=== PATIENT | male | born 1975 | race Two or more races ===

== ENCOUNTER 2021-06-07 14:08 | Emergency (ER) | payer OTHER ==
[2021-06-07 14:18] VITALS: BP 145/97
--- NOTE | 2021-06-07 15:52 | ED Physician Documentation ---
History of Present Illness - Stated complaint Stated Complaint: LT BACK/SHOULDER PX - Chief complaint Chief Complaint: General - Additonal information Additional information: 45-year-old male presents emergency department for evaluation of 4 days upper arm back low back neck pain as well as headache. 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 He reports he had been unemployed for about 1 month before starting work again. He reports feeling feverish but has had no nausea or vomiting no loss of taste or smell. He had the [employer] Covid vaccine in January of this year. Review of Systems Constitutional: reports: Myalgias. denies: Fever, Chills Eyes: reports: Reviewed and negative Ears: reports: Reviewed and negative Nose: reports: Reviewed and negative Throat: reports: Reviewed and negative Cardiac: reports: Reviewed and negative Respiratory: reports: Reviewed and negative GI: reports: Reviewed and negative PD PAST MEDICAL HISTORY - Present Medications Home Medications: Ambulatory Orders Medication Instructions Recorded Confirmed No Known Home Medications 06/07/21 06/07/21 - Allergies Allergies/Adverse Reactions: Allergies Allergy/AdvReac Type Severity Reaction Status Date / Time No Known Drug Allergies Allergy Verified 06/07/21 14:19 PD ED PE NORMAL - General General: Alert and oriented X 3, No acute distress - HEENT HEENT: PERRL - Neck Neck: Supple, no meningeal sign - Cardiac Cardiac: RRR, No murmur - Respiratory Respiratory: Clear bilaterally - Abdomen Abdomen: Normal bowel sounds, Soft, Non tender, Non distended - Back Back: No CVA TTP Results - Vitals Vitals: Vital Signs - 24 hr 06/07/21 14:12 Temperature 36 C L Heart Rate 89 Respiratory 16 Rate Blood Pressure 145/97 H O2 Saturation 97 Oxygen O2 Source Room air PD MEDICAL DECISION MAKING - ED course Complexity details: d/w patient, d/w family ED course: 45-year-old male presents emergency department for evaluation of 4 days generalized myalgias headache back pain. No cough fever congestion. No abdominal pain nausea or vomiting. 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 This may simply be musculoskeletal strain but given the pandemic a COVID-19 screen is completed. Patient advised to remain in quarantine until the results are known. Departure - Departure Disposition: 01 Home, Self Care Clinical Impression: Generalized body aches Comments: Lj we are obtaining a COVID-19 screen on you. It is possible that a mild virus is causing the body aches but it could also be due to the heavy hardwood work that you did on Saturday. I recommend that you stay very well-hydrated drinking lots of fluids. You can take Tylenol or Aleve for discomfort. If your symptoms are not getting better, you develop fevers, have difficulty breathing or have swelling in your arms or legs and please return immediately to the ER. You have a Covid test pending. You need to self quarantine until the result is done and negative. Do not leave your house. Do not get near anybody. The results should be done in 48 to 72 hours. We will call with a positive result, the fastest way to get a negative result for confirmation though is to go to the hospital website at [email or web address], click on the my [email or web address] tab and sign up for the patient portal. If any friends or family get sick and would like to have a Covid test done, but do not have signs or symptoms that would necessitate being hospitalized, we encourage testing through our coronavirus swabbing station, call [phone] to schedule an appointment.
== END 2021-06-07 16:25 | disposition home or self-care (01) ==
LOC: ED 14:08
DX: M79.10 Myalgia, unspecified site (principal); R51.9 Headache, unspecified; M54.5 Low back pain; M54.2 Cervicalgia; Z20.822 Contact with and (suspected) exposure to COVID-19
CPT/HCPCS: 99284

== ENCOUNTER 2022-01-13 18:45 | Emergency (ER) | payer OTHER ==
[2022-01-13 19:05] LABS: BILIRUBIN,URINE NEGATIVE (NEGATIVE); GLUCOSE, URINE (UA) NEGATIVE (NEGATIVE); KETONES,URINE (UA) NEGATIVE (NEGATIVE); LEUKOCYTE ESTERASE, URINE NEGATIVE (NEGATIVE); NITRITE,URINE NEGATIVE (NEGATIVE); OCCULT BLOOD,URINE TRACE-INTA (NEGATIVE); PH,URINE 5.5 PH (5.0-7.5); PROTEIN,URINE NEGATIVE (NEGATIVE); UROBILINOGEN,URINE 0.2 (NORMAL) E.U./dL (NORMAL)
[2022-01-13 19:06] LABS: CLARITY,URINE CLEAR (CLEAR)
--- NOTE | 2022-01-13 19:06 | ED Physician Documentation ---
PD HPI ABD PAIN - Stated complaint Stated Complaint: fever,abd & back px - Chief complaint Chief Complaint: Abd Pain - History obtained from History obtained from: Patient - History of Present Illness Timing - onset: Last night Timing - duration: Days (1) Timing - details: Gradual onset, Still present, Waxing and waning Quality: Cramping, Aching, Pain Location: Periumbilical, Other (right side abd upper to mid.) Radiation: Upper back. No: Chest Improved by: No: Vomiting Worsened by: Eating Associated symptoms: Fever (feeling of chills, did not take temp.), Nausea, Vomiting. No: Diarrhea, Constipation, Dysuria, Chest pain Similar symptoms before: Diagnosis (similar to gallbladder) Recently seen: Not recently seen Review of Systems Constitutional: reports: Fever, Chills Nose: denies: Rhinorrhea / runny nose, Congestion Throat: denies: Sore throat Cardiac: denies: Chest pain / pressure Respiratory: denies: Cough GI: reports: Abdominal Pain, Nausea, Vomiting. denies: Constipation, Diarrhea : denies: Dysuria, Frequency Skin: denies: Rash, Lesions Neurologic: reports: Generalized weakness. denies: Altered mental status, Headache PD PAST MEDICAL HISTORY - Past Medical History Cardiovascular: None Respiratory: None - Past Surgical History Past Surgical History: Yes General: Cholecystectomy, Appendectomy - Present Medications Home Medications: Ambulatory Orders Medication Instructions Recorded Confirmed Losartan Potassium [Cozaar] 100 mg PO DAILY 01/13/22 01/14/22 Ondansetron Odt [Zofran] 4 mg TL Q6H PRN #10 tablet 01/13/22 01/14/22 clonazePAM [Clonazepam] 1 mg PO DAILY PRN 01/13/22 01/14/22 metFORMIN [Glucophage] 1,000 mg PO DAILY 01/13/22 01/14/22 oxyCODONE [Roxicodone] 5 mg PO Q6H PRN #15 tablet 01/13/22 01/14/22 Molnupiravir [Molnupiravir (Eua)] 800 mg PO BID #40 cap 01/14/22 - Allergies Allergies/Adverse Reactions: Allergies Allergy/AdvReac Type Severity Reaction Status Date / Time No Known Drug Allergies Allergy Verified 01/14/22 10:06 - Social History Does the pt smoke?: No Smoking Status: Never smoker Does the pt drink ETOH?: Yes Does the pt have substance abuse?: No - Immunizations Immunizations are current?: No - POLST Patient has POLST: No PD ED PE NORMAL - Vitals Vital signs reviewed: Yes - General General: Alert and oriented X 3, Well developed/nourished, Other (appears in pain and also complains of nausea. ) - HEENT HEENT: Pharynx benign - Neck Neck: Supple, no meningeal sign, No adenopathy - Cardiac Cardiac: RRR, No murmur - Respiratory Respiratory: Clear bilaterally - Abdomen Abdomen: Soft, Non distended, Other (tender mid to upper right abd with some guarding but no rebound nor percussion tender. ). No: Normal bowel sounds (decreased) Results - Vitals Vitals: Vital Signs - 24 hr 01/13/22 01/13/22 01/13/22 18:49 20:04 21:09 Temperature 38.4 C H Heart Rate 99 88 78 Respiratory 16 24 16 Rate Blood Pressure 141/96 H 155/95 H 146/89 H O2 Saturation 97 99 97 01/13/22 21:52 Temperature Heart Rate 77 Respiratory 18 Rate Blood Pressure 140/93 H O2 Saturation 97 Oxygen O2 Source Room air - Labs Labs: Laboratory Tests 01/13/22 01/13/22 01/13/22 18:54 19:06 19:06 WBC 6.5 RBC 5.03 Hgb 14.8 Hct 43.1 MCV 85.7 MCH 29.4 MCHC 34.3 RDW 12.4 Plt Count 164 MPV 11.9 H Neut # (Auto) Not Reportable Lymph # (Auto) Not Reportable [facility] # (Auto) Not Reportable Eos # (Auto) Not Reportable Baso # (Auto) Not Reportable Absolute Nucleated RBC Not Reportable Total Counted 100 Band Neuts % (Manual) 0 Abnorm Lymph % (Manual) 0 Nucleated RBC % Not Reportable Neutrophils # (Manual) 3.8 Lymphocytes # (Manual) 1.2 L Monocytes # (Manual) 1.4 H Eosinophils # (Manual) 0.1 Basophils # (Manual) 0.0 Differential Comment MANUAL DIFFERENTIAL WBC Morphology NORMAL APPEARANCE Platelet Estimate NORMAL (130-450,000) Platelet Morphology NORMAL APPEARANCE RBC Morph Micro Appear 1+ POLYCHROMASIA Sodium 135 Potassium 3.6 Chloride 101 Carbon Dioxide 25 Anion Gap 9.0 BUN 16 Creatinine 0.9 Estimated GFR (MDRD) 91 Glucose 96 Calcium 8.9 Total Bilirubin 0.5 AST 38 ALT 67 H Alkaline Phosphatase 89 Total Protein 7.5 Albumin 4.4 Globulin 3.1 Albumin/Globulin Ratio 1.4 Lipase 140 H Urine Color YELLOW Urine Clarity CLEAR Urine pH 5.5 Ur Specific [place] 1.025 Urine Protein NEGATIVE Urine Glucose (UA) NEGATIVE Urine Ketones NEGATIVE Urine Occult Blood TRACE-INTA Urine Nitrite NEGATIVE Urine Bilirubin NEGATIVE Urine Urobilinogen 0.2 (NORMAL) Ur Leukocyte Esterase NEGATIVE Ur Microscopic Review NOT INDICATED Urine Culture Comments NOT INDICATED - Rads (name of study) abd/pelvic CT Radiology: Prelim report reviewed, See rad report PD MEDICAL DECISION MAKING - ED course Complexity details: re-evaluated patient (he is improved pain and able to take PO liquids, so does not appear to need hospitalization. I do not feel I am missing more serious process. ), considered differential (CT scan is normal. Could have viral illness and just elevated lipase from illness. Fever would not fit with the pancreas with such normal CT. No alcohol use. Does not appear biliary. only med he takes associated with pancreatitis is the HCTZ per [facility]. ), d/w patient Departure - Departure Disposition: Home, Self Care Clinical Impression: Abdominal pain Qualifiers: Abdominal location: generalized Qualified Code(s): R10.84 - Generalized abdominal pain Pancreatitis Qualifiers: Chronicity: acute Pancreatitis type: unspecified pancreatitis type Acute pancreatitis complication: no infection or necrosis Qualified Code(s): K85.90 - Acute pancreatitis without necrosis or infection, unspecified Condition: Stable Record reviewed to determine appropriate education?: Yes Instructions: ED Pancreatitis Prescriptions: oxyCODONE [Roxicodone] 5 mg PO Q6H PRN #15 tablet PRN Reason: Pain Ondansetron Odt [Zofran] 4 mg TL Q6H PRN #10 tablet PRN Reason: Nausea / Vomiting Comments: Your CT scan did not show any acute visual abnormality. Your pancreas appeared normal and there are no tumors or cysts or masses. However your blood test does have elevation of the lipase which is a pancreas marker. Your pain therefore seems to be coming from pancreatitis. Common causes of this do not really apply to as the most common would be related to gallbladder or bile duct problems, alcohol use and these are not pertinent to you. Your gallbladder has been removed in the common bile duct is normal on scan. The next most common cause then is medication related and of the medication 0 take, the hydrochlorothiazide is the only one associated with pancreatitis according to drug information reference called [facility]. I would have you stop your hydrochlorothiazide. Clear liquid diet for the next 2 to 3 days. Continue your other usual medicines. Use Tylenol every 4-6 hours for pain and ondansetron every 6 hours if needed for nausea. To that add oxycodone every 4-6 hours for worse pain. Recheck if not improved well over the next 2 to 3 days and return if worsening. I transmitted your prescriptions to [facility] pharmacy in [place]. I am prescribing a short course of narcotic pain medication for you. These are potentially dangerous and addictive medications that should be used carefully. These medications may constipate you. Take an psvv-imx-vzlyqvb stool softener such as docusate twice daily with plenty of water while taking these medications. If you go 24 hours without a bowel movement, take laqq-eer-[id number] MiraLAX, per package instructions. Do not drink or drive while taking these medications. If you received narcotic or sedating medications while in the emergency department do not drive for 24 hours. Store this medication in a safe, secure place and out of reach of children. It is a violation of federal law to give or sell this medication to another person or to use in a manner other than prescribed. The ED will not refill narcotic prescriptions, including prescriptions lost or stolen. You can dispose of unwanted medications at the [facility] office or at several pharmacies such as [facility]. Discharge Date/Time: 01/13/22 22:02
[2022-01-13 19:10] LABS: BASOPHILS % (AUTO) 0.5 %; EOSINOPHILS % (AUTO) 1.5 %; HCT - HEMATOCRIT 43.1 % (42.0-52.0); HGB - HEMOGLOBIN 14.8 g/dL (14.0-18.0); LYMPHOCYTES % (AUTO) 18.3 %; MEAN CORPUSCULAR HEMOGLOBIN 29.4 pg (27.0-31.0); MEAN CORPUSCULAR HGB CONC 34.3 g/dL (32.0-36.0); MEAN CORPUSCULAR VOLUME 85.7 fL (80.0-94.0); MEAN PLATELET VOLUME 11.9 fL (7.4-11.4); MONOCYTES % (AUTO) 23.3 %; NEUTROPHILS % (AUTO) 55.9 %; PLT - PLATELET COUNT 164 10^3/uL (130-450); RED BLOOD COUNT 5.03 10^6/uL (4.70-6.10); RED CELL DISTRIBUTION WIDTH 12.4 % (12.0-15.0); WHITE BLOOD COUNT 6.5 x10^3/uL (4.8-10.8)
[2022-01-13 19:13] LABS: ABNORMAL LYMPHS % (MANUAL) 0 %; BAND NEUTROPHILS % (MANUAL) 0 %
[2022-01-13 19:25] LABS: ALBUMIN 4.4 g/dL (3.2-5.5); ALBUMIN/GLOBULIN RATIO 1.4 (1.0-2.2); BILIRUBIN,TOTAL 0.5 mg/dL (0.2-1.0); CALCIUM 8.9 mg/dL (8.5-10.3); CREATININE 0.9 mg/dL (0.6-1.2); POTASSIUM 3.6 mmol/L (3.5-5.0); TOTAL PROTEIN 7.5 g/dL (6.7-8.2)
[2022-01-13] MEDS ORDERED: SODIUM CHLORIDE 0.9% 1,000 ML IV STA (19:26)
[2022-01-13] MEDS ORDERED: ONDANSETRON 4 MG/2 ML VIAL IVP STA (19:26)
[2022-01-13] MEDS ORDERED: HYDROmorphone 1 MG/ML CARPUJECT IVP STA ×3 (19:26→21:41)
[2022-01-13] MEDS ORDERED: KETOROLAC 30 MG/ML VIAL IVP STA (19:26)
[2022-01-13] MEDS ORDERED: IOVERSOL 320 100 ML VIAL IVP ONE ×2 (19:38→20:07)
[2022-01-13 19:52] LABS: EOSINOPHILS # (MANUAL) 0.1 10^3/uL (0-0.7); LYMPHOCYTES # (MANUAL) 1.2 10^3/uL (1.5-3.5); LYMPHOCYTES % (MANUAL) 18 %; MONOCYTES # (MANUAL) 1.4 10^3/uL (0.0-1.0); NEUTROPHILS # (MANUAL) 3.8 10^3/uL (1.5-6.6)
[2022-01-13 19:53] LABS: DIFFERENTIAL COMMENT MANUAL DIFFERENTIAL; PLATELET ESTIMATE, MANUAL NORMAL (130-450,000) (NORMAL); PLATELET MORPHOLOGY NORMAL APPEARANCE (NORMAL); RBC MORPHOLOGY (MULTIPLE) 1+ POLYCHROMASIA (NORMAL); WBC MORPHOLOGY (MULTIPLE) NORMAL APPEARANCE (NORMAL)
[2022-01-13] MEDS ORDERED: FAMOTIDINE 20 MG/2 ML VIAL IVP STA (20:52)
--- NOTE | 2022-01-13 20:57 | CT Report ---
PROCEDURE: Abdomen/Pelvis W INDICATIONS: right abd pain to flank CONTRAST: IV CONTRAST: Optiray 320 ml: 100 PO CONTRAST: *NO PO CONTRAST TECHNIQUE: After the administration of nonionic contrast, 5 mm thick sections acquired from the diaphragms to th e symphysis. 5 mm thick coronal and sagittal reformats were acquired. For radiation dose reduction, the following was used: automated exposure control, adjustment of mA and/or kV according to patient size. COMPARISON: None. FINDINGS: Image quality: Excellent. ABDOMEN: Lung bases: Lung bases are clear. Heart size is normal. Solid organs: Liver and spleen are normal in size and enhancement. Gallbladder is surgically absent Biliary system is non dilated. Pancreas enhances normally. No adrenal nodules. Kidneys demonstra te normal size and enhancement, without hydronephrosis. Peritoneum and bowel: Bowel loops demonstrate normal wall thickness and caliber. No free fluid or a ir. Nodes and vessels: No retroperitoneal or mesenteric adenopathy by size criteria. Aorta and inferior vena cava are normal in size. Miscellaneous: No ventral hernias. PELVIS: Genitourinary: Bladder wall thickness is normal. Miscellaneous: No inguinal hernias or adenopathy. A normal or abnormal appendix could not be locate d. Bones: No suspicious bony lesions. No vertebral body compression fractures. IMPRESSION: Prior cholecystectomy. A normal or abnormal appendix could not be located but no seconda ry CT evidence of appendicitis is found. Source of right sided pain radiating to the right flank is n ot identified. Reviewed by: Billy Waller MD on 01/13/2022 8:56 PM PDT Approved by: Billy Waller MD on 01/13/2022 8:56 PM PDT Station ID: [id number]
[2022-01-13] MEDS ORDERED: ONDANSETRON ODT 4 MG Prepack 2 TL PRN (21:39)
[2022-01-13] MEDS ORDERED: oxyCODONE/ACET 5/325 Prepack 4 PO STA (21:39)
[2022-01-13 21:53] VITALS: BP 140/93
== END 2022-01-13 22:02 | disposition home or self-care (01) ==
LOC: ED 18:45
DX: K85.90 Acute pancreatitis without necrosis or infection, unspecified (principal)
CPT/HCPCS: 36415; 74177; 80053; 81003; 83690; 85025; 96374; 96375; 96376; 99284; 99285; J1170; Q9967; 81001; 87086

== ENCOUNTER 2022-01-14 10:03 | Emergency (ER) | payer OTHER ==
[2022-01-14 10:32] LABS: BASOPHILS % (AUTO) 0.3 %; EOSINOPHILS % (AUTO) 0.2 %; HCT - HEMATOCRIT 42.5 % (42.0-52.0); HGB - HEMOGLOBIN 14.6 g/dL (14.0-18.0); LYMPHOCYTES # (AUTO) 1.4 10^3/uL (1.5-3.5); LYMPHOCYTES % (AUTO) 21.1 %; MEAN CORPUSCULAR HEMOGLOBIN 29.4 pg (27.0-31.0); MEAN CORPUSCULAR HGB CONC 34.4 g/dL (32.0-36.0); MEAN CORPUSCULAR VOLUME 85.5 fL (80.0-94.0); MEAN PLATELET VOLUME 11.9 fL (7.4-11.4); MONOCYTES # (AUTO) 1.1 10^3/uL (0.0-1.0); MONOCYTES % (AUTO) 17.7 %; NEUTROPHILS # (AUTO) 3.9 10^3/uL (1.5-6.6); NEUTROPHILS % (AUTO) 60.2 %; PLT - PLATELET COUNT 162 10^3/uL (130-450); RED BLOOD COUNT 4.97 10^6/uL (4.70-6.10); RED CELL DISTRIBUTION WIDTH 12.3 % (12.0-15.0); WHITE BLOOD COUNT 6.5 x10^3/uL (4.8-10.8)
[2022-01-14 10:46] LABS: ALBUMIN 4.3 g/dL (3.2-5.5); ALBUMIN/GLOBULIN RATIO 1.4 (1.0-2.2); ALKALINE PHOSPHATASE 86 IU/L (42-121); ALT ALANINE AMINOTRANSFERASE 78 IU/L (10-60); AST ASPARTATE AMINOTRANSFERASE 48 IU/L (10-42); BILIRUBIN,TOTAL 0.5 mg/dL (0.2-1.0); BUN - BLOOD UREA NITROGEN 15 mg/dL (6-20); CALCIUM 8.8 mg/dL (8.5-10.3); CARBON DIOXIDE - CO2 23 mmol/L (21-32); CHLORIDE 99 mmol/L (101-111); CREATININE 0.9 mg/dL (0.6-1.2); ETOH - ETHANOL < 5.0 mg/dL; GFR - MDRD 91 (>89); GLUCOSE 98 mg/dL (70-100); LIPASE 31 U/L (22-51); SODIUM 133 mmol/L (135-145); TOTAL PROTEIN 7.4 g/dL (6.7-8.2)
[2022-01-14] MEDS ORDERED: DEXAMETHASONE 10 MG/ML VIAL IVP STA (10:51)
[2022-01-14] MEDS ORDERED: KETOROLAC 30 MG/ML VIAL IVP STA (10:51)
[2022-01-14] MEDS ORDERED: SODIUM CHLORIDE 0.9% 1,000 ML IV STA (10:51)
--- NOTE | 2022-01-14 10:52 | ED Physician Documentation ---
History of Present Illness - Stated complaint Stated Complaint: ABD PX,HEADACHE,EAR & NECK PX - Chief complaint Chief Complaint: Abd Pain - History obtained from History obtained from: Patient, Family - History of Present Illness Timing: How many days ago (3) - Additonal information Additional information: Previously well 46-year-old male has come to [facility] from [place] 4 days ago. 2 days ago he began to develop abdominal pain on the right side radiating to his back. He has had his gallbladder out previously.He was seen in the emergency department yesterday and diagnosed with pancreatitis had a CT scan done of the abdomen and pelvis which was unremarkable and without evidence of acute obstruction. He was treated with pain medication and fluids in the emergency department and discharged with pain medication and Zofran. He indicates he had nothing to drink or eat since discharge and continues to have pain he found the pain medication inadequate for pain control. He is complaining of pain in his head and neck and behind his right ear. He is complaining of fever and fatigue. He denies a cough or diarrhea or vomiting. Review of Systems Constitutional: reports: Fever, Chills, Myalgias, Fatigue, Sweats Eyes: denies: Decreased vision Ears: reports: Ear pain Nose: reports: Congestion Throat: denies: Sore throat Cardiac: denies: Chest pain / pressure, Palpitations Respiratory: denies: Dyspnea, Cough, Wheezing GI: reports: Abdominal Pain, Nausea. denies: Vomiting, Constipation, Diarrhea : denies: Dysuria, Frequency PD PAST MEDICAL HISTORY - Past Medical History Past Medical History: Yes Cardiovascular: Hypertension - Past Surgical History Past Surgical History: No - Present Medications Home Medications: Ambulatory Orders Medication Instructions Recorded Confirmed Losartan Potassium [Cozaar] 100 mg PO DAILY 01/13/22 01/14/22 Ondansetron Odt [Zofran] 4 mg TL Q6H PRN #10 tablet 01/13/22 01/14/22 clonazePAM [Clonazepam] 1 mg PO DAILY PRN 01/13/22 01/14/22 metFORMIN [Glucophage] 1,000 mg PO DAILY 01/13/22 01/14/22 oxyCODONE [Roxicodone] 5 mg PO Q6H PRN #15 tablet 01/13/22 01/14/22 Molnupiravir [Molnupiravir (Eua)] 800 mg PO BID #40 cap 01/14/22 Nirmatrelvir/Ritonavir [Paxlovid 1 each PO BID #10 tablet 01/14/22 Co-Pack (Eua)] - Allergies Allergies/Adverse Reactions: Allergies Allergy/AdvReac Type Severity Reaction Status Date / Time No Known Drug Allergies Allergy Verified 01/14/22 10:06 - Social History Does the pt smoke?: No Smoking Status: Never smoker Does the pt drink ETOH?: Yes Does the pt have substance abuse?: No - Immunizations Immunizations are current?: No - POLST Patient has POLST: No PD ED PE NORMAL - Vitals Vital signs reviewed: Yes (hypertensive ) - General General: Alert and oriented X 3, Other (46 y/o male crying on exam clutching his forehead and rubbing the back of his neck. ) - HEENT HEENT: Atraumatic, PERRL, EOMI, Ears normal, Moist mucous membranes, Pharynx benign, Dentition benign, Other - Neck Neck: Supple, no meningeal sign, No bony TTP - Cardiac Cardiac: RRR, No murmur - Respiratory Respiratory: No respiratory distress, Clear bilaterally - Abdomen Abdomen: Normal bowel sounds, Soft, Non distended, No organomegaly, Other (epigastrict tenderness without gaurding or rebound tenderness. 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 ) Results - Vitals Vitals: Vital Signs - 24 hr 01/14/22 01/14/22 10:08 12:09 Temperature 37.4 C Heart Rate 95 90 Respiratory 24 19 Rate Blood Pressure 177/99 H 140/76 H O2 Saturation 100 99 Oxygen O2 Source Room air - Labs Labs: Laboratory Tests 01/14/22 01/14/22 01/14/22 10:25 10:25 11:07 WBC 6.5 RBC 4.97 Hgb 14.6 Hct 42.5 MCV 85.5 MCH 29.4 MCHC 34.4 RDW 12.3 Plt Count 162 MPV 11.9 H Neut # (Auto) 3.9 Lymph # (Auto) 1.4 L [place] # (Auto) 1.1 H Eos # (Auto) 0.0 Baso # (Auto) 0.0 Absolute Nucleated RBC 0.00 Nucleated RBC % 0.0 Sodium 133 L Potassium 4.0 Chloride 99 L Carbon Dioxide 23 Anion Gap 11.0 BUN 15 Creatinine 0.9 Estimated GFR (MDRD) 91 Glucose 98 Calcium 8.8 Total Bilirubin 0.5 AST 48 H ALT 78 H Alkaline Phosphatase 86 Total Protein 7.4 Albumin 4.3 Globulin 3.1 Albumin/Globulin Ratio 1.4 Lipase 31 Nasal Adenovirus (PCR) NOT DETECTED Nasal B. parapertussis DNA (PCR) NOT DETECTED Nasal Coronavir 229E PCR NOT DETECTED Nasal Coronavir HKU1 PCR NOT DETECTED Nasal Coronavir NL63 PCR NOT DETECTED Nasal Coronavir OC43 PCR NOT DETECTED Nasal Enterovir/Rhinovir PCR NOT DETECTED Nasal Influenza B PCR NOT DETECTED Nasal Influenza A PCR NOT DETECTED Nasal Parainfluen 1 PCR NOT DETECTED Nasal Parainfluen 2 PCR NOT DETECTED Nasal Parainfluen 3 PCR NOT DETECTED Nasal Parainfluen 4 PCR NOT DETECTED Nasal RSV (PCR) NOT DETECTED Nasal B.pertussis DNA PCR NOT DETECTED Nasal C.pneumoniae (PCR) NOT DETECTED [place] Human Metapneumo PCR NOT DETECTED Nasal M.pneumoniae (PCR) NOT DETECTED Nasal SARS-CoV-2 (PCR) DETECTED A Ethyl Alcohol < 5.0 Procedures - IVC sono (time) 1050 Bedside IVC sono: IVC measures (cm) (1.2), Dehydration (est 1 liter deficit) PD MEDICAL DECISION MAKING - ED course Complexity details: reviewed old records, reviewed results, re-evaluated patient, considered differential, d/w patient, d/w family ED course: 46-year-old male who presented to the emerge department yesterday with abdominal pain was diagnosed with pancreatitis has not eaten anything and today his lipase is improved but he continues to have pain and is also complaining of a fever and aches in his muscles in the neck and head. He does not have nuchal rigidity. He did arrive yesterday with fever and a normal white count. Today he has normal white count and his lipase is normal. He continues to have some mild epigastric tenderness and is mildly dehydrated. An IV is established and he is administered dexamethasone and Toradol as well as saline. A respiratory PCR is obtained.PCR is positive for COVID-19. The patient is unvaccinated and we attempted to prescribe Paxlovid for the patient and the [facility] in [place] only carries Mulnupiravir. We authorized change of that to 800 mg twice daily x5 days. Departure - Departure Disposition: 01 Home, Self Care Clinical Impression: COVID-19 Condition: Stable Instructions: COVID-19 [facility], Flu and Cold: Nutrition, Prevention and Treatment Tips Follow-Up: [facility] [Provider Group] Prescriptions: Molnupiravir [Molnupiravir (Eua)] 800 mg PO BID #40 cap Nirmatrelvir/Ritonavir [Paxlovid Co-Pack (Eua)] 1 each PO BID #10 tablet Comments: Lj, today it looks like you have Covid 19. There is a medication that will help with this and I have E scribed to [facility] in [place]. The mainstay of treatment for COVID is to remain hydrated and treat the fever. You will likely have some aches and pains associated with this and the medication we have prescribed should help relieve your symptoms more rapidly. Tylenol ibuprofen and fluids are the mainstay of symptomatic treatment. If you develop worsening of symptoms or become profoundly dehydrated return to visit us here in the emergency department. We are here at 3:00 in the morning. Discharge Date/Time: 01/14/22 12:45
[2022-01-14] MEDS ORDERED: ONDANSETRON 4 MG/2 ML VIAL IVP STA (11:02)
--- NOTE | 2022-01-14 11:32 | XRAY Report ---
PROCEDURE: Chest 1 View X-Ray INDICATIONS: chest pain TECHNIQUE: One view of the chest was acquired. COMPARISON: None. FINDINGS: Surgical changes and devices: None. Lungs and pleura: No pleural effusions or pneumothorax. Lungs are clear. Mediastinum: Mediastinal contours appear normal. Heart size is normal. Bones and chest wall: No suspicious bony lesions. Overlying soft tissues appear unremarkable. IMPRESSION: No acute cardiopulmonary process demonstrated radiographically. Reviewed by: Eugene Sanchez MD on 01/14/2022 11:31 AM PDT Approved by: Eugene Sanchez MD on 01/14/2022 11:31 AM PDT Station ID: [id number]
--- NOTE | 2022-01-14 12:04 | CT Report ---
PROCEDURE: HEAD WO INDICATIONS: RIGHT hemicrania pain/vomiting TECHNIQUE: Noncontrast 4.5 mm thick angled axial sections acquired from the foramen magnum to the vertex. For r adiation dose reduction, the following was used: automated exposure control, adjustment of mA and/or kV according to patient size. COMPARISON: None. FINDINGS: Image quality: Excellent. CSF spaces: Basal cisterns are patent. No extra-axial fluid collections. Ventricles are normal in size and shape. Brain: No midline shift. No intracranial masses or hemorrhage. [place]-white matter interface is norm al. Skull and face: Calvarium and visualized facial bones are intact, without suspicious lesions. Sinuses: Visualized sinuses and mastoids are clear. IMPRESSION: No acute intracranial finding. Reviewed by: Eugene Sanchez MD on 01/14/2022 12:02 PM PDT Approved by: Eugene Sanchez MD on 01/14/2022 12:02 PM PDT Station ID: [id number]
[2022-01-14 12:10] LABS: B. PARAPERTUSSIS- RESP PCR PAN NOT DETECTED; B. PERTUSSIS- RESP PCR PANEL NOT DETECTED; C. PNEUMONIAE- RESP PCR PANEL NOT DETECTED; CORONAVIRUS 229E-RESP PCR NOT DETECTED; CORONAVIRUS HKU1-RESP PCR NOT DETECTED; CORONAVIRUS NL63-RESP PCR NOT DETECTED; CORONAVIRUS OC43-RESP PCR NOT DETECTED; HUMAN METAPNEUMOVIRUS NOT DETECTED; INFLUENZA A- RESP PCR PANEL NOT DETECTED; INFLUENZA B - RESP PCR PANEL NOT DETECTED; M. PNEUMONIAE- RESP PCR PANEL NOT DETECTED; PARAINFLUENZA VIRUS 1 NOT DETECTED; PARAINFLUENZA VIRUS 2 NOT DETECTED; PARAINFLUENZA VIRUS 3 NOT DETECTED; PARAINFLUENZA VIRUS 4 NOT DETECTED; RHINOVIRUS/ENTEROVIRUS NOT DETECTED; RSV- RESP PCR PANEL NOT DETECTED
[2022-01-14 12:14] LABS: SARS-CoV-2 -RESP PCR PANEL DETECTED
[2022-01-14 12:36] VITALS: BP 140/76
== END 2022-01-14 12:45 | disposition home or self-care (01) ==
LOC: ED 10:03
DX: Z28.9 Immunization not carried out for unspecified reason (principal); E86.0 Dehydration; Z28.310 Unvaccinated for COVID-19
CPT/HCPCS: 0202U; 36415; 70450; 71045; 80053; 80320; 83690; 85025; 96374; 96375; 99283; 99284

== ENCOUNTER 2023-06-17 19:40 | Emergency (ER) | payer OTHER ==
[2023-06-17] MEDS ORDERED: ONDANSETRON 4 MG/2 ML VIAL IVP STA (20:05)
[2023-06-17] MEDS ORDERED: HYDROmorphone 1 MG/ML CARPUJECT IVP STA (20:05)
[2023-06-17] MEDS ORDERED: SODIUM CHLORIDE 0.9% 1,000 ML IV STA (20:05)
--- NOTE | 2023-06-17 20:10 | ED Physician Documentation ---
History of Present Illness - Stated complaint Stated Complaint: ABD PX - Chief complaint Chief Complaint: Abd Pain - Additonal information Additional information: Patient 47-year-old male presenting to the emergency department with left lower quadrant abdominal pain x3 days. Past medical significant for type 2 diabetes for which he takes metformin. 3 days stabbing left lower quadrant abdominal pain with associated nausea, vomiting, diarrhea. Denies similar pain in the past. Denies fever, known sick contacts, travel, recent antibiotics. Has had decreased p.o. intake secondary to pain and nausea.Denies past surgical history. Review of Systems Constitutional: denies: Fever Eyes: denies: Loss of vision Nose: denies: Rhinorrhea / runny nose GI: reports: Abdominal Pain, Nausea, Vomiting, Diarrhea PD PAST MEDICAL HISTORY - Past Medical History Past Medical History: Yes Cardiovascular: Hypertension - Past Surgical History Past Surgical History: No - Present Medications Home Medications: Ambulatory Orders Medication Instructions Recorded Confirmed Losartan Potassium [Cozaar] 100 mg PO DAILY 01/13/22 01/14/22 Ondansetron Odt [Zofran] 4 mg TL Q6H PRN #10 tablet 01/13/22 01/14/22 clonazePAM [Clonazepam] 1 mg PO DAILY PRN 01/13/22 01/14/22 metFORMIN [Glucophage] 1,000 mg PO DAILY 01/13/22 01/14/22 oxyCODONE [Roxicodone] 5 mg PO Q6H PRN #15 tablet 01/13/22 01/14/22 Molnupiravir [Lagevrio (Eua)] 800 mg PO BID #40 cap 01/14/22 - Allergies Allergies/Adverse Reactions: Allergies Allergy/AdvReac Type Severity Reaction Status Date / Time No Known Drug Allergies Allergy Verified 06/17/23 19:53 - Social History Does the pt smoke?: No Smoking Status: Never smoker Does the pt drink ETOH?: Yes Does the pt have substance abuse?: No - Immunizations Immunizations are current?: No - POLST Patient has POLST: No PD ED PE NORMAL - General General: Alert and oriented X 3 - HEENT HEENT: Atraumatic - Neck Neck: Supple, no meningeal sign - Cardiac Cardiac: RRR - Respiratory Respiratory: No respiratory distress, Clear bilaterally - Abdomen Abdomen: Other (Left lower quadrant tenderness without guarding, rebound, rigidity.) Results - Vitals Vitals: Vital Signs - 24 hr 06/17/23 19:49 Temperature 37.0 C Heart Rate 75 Respiratory 15 Rate Blood Pressure 136/89 H O2 Saturation 97 Oxygen O2 Source Room air - Labs Labs: Laboratory Tests 06/17/23 06/17/23 06/17/23 20:00 20:16 20:16 WBC 7.7 RBC 4.92 Hgb 14.4 Hct 42.3 MCV 86.0 MCH 29.3 MCHC 34.0 RDW 12.8 Plt Count 222 MPV 11.3 Neut # (Auto) 4.8 Lymph # (Auto) 2.2 [place] # (Auto) 0.6 Eos # (Auto) 0.1 Baso # (Auto) 0.0 Absolute Nucleated RBC 0.00 Nucleated RBC % 0.0 Sodium 139 Potassium 3.3 L Chloride 105 Carbon Dioxide 29 Anion Gap 5.0 L BUN 9 Creatinine 1.0 Estimated GFR (MDRD) 80 L Glucose 92 Calcium 9.7 Total Bilirubin 0.6 AST 17 ALT 29 Alkaline Phosphatase 94 Total Protein 7.0 Albumin 4.6 Globulin 2.4 Albumin/Globulin Ratio 1.9 Lipase 21 Urine Color YELLOW Urine Clarity CLEAR Urine pH 5.5 Ur Specific [place] 1.020 Urine Protein NEGATIVE Urine Glucose (UA) NEGATIVE Urine Ketones NEGATIVE Urine Occult Blood NEGATIVE Urine Nitrite NEGATIVE Urine Bilirubin NEGATIVE Urine Urobilinogen 0.2 (NORMAL) Ur Leukocyte Esterase NEGATIVE Ur Microscopic Review NOT INDICATED Urine Culture Comments NOT INDICATED PD Medical Decision Making - ED course Complexity details: reviewed results, re-evaluated patient, considered differential, d/w patient ED course: Patient 47-year-old male presenting to the emergency department with left lower quadrant abdominal pain with associated nausea vomiting. Afebrile, he medically stable and arrival to the emergency department. Some mild left lower quadrant tenderness to palpation. He initially reported that his symptoms were acute however on reevaluation he reported he been having similar symptoms for several months. He has follow-up with primary care. He reports that he has had stool studies done but does not know the result. States he was scheduled for colonoscopy but missed his initial appointment. Comprehensive labs obtained in the emergency department were all very reassuring. CT of the abdomen pelvis demonstrated colitis. Of note there was some nonspecific fat stranding around the patient's gluteal area however physical examination of this area is negative for any indications of inflammation or infection. He was unable to provide a stool sample in the emergency department for repeat stool studies. He was given medication for pain control and IV hydration in the emergency department with significant improvement in symptoms. Will discharge with starter packs for hydrocodone, ondansetron for use as needed until he is able to follow-up with his primary care doctor today or tomorrow. Otherwise clear return precautions given prior to discharge. Departure - Departure Disposition: Home, Self Care Clinical Impression: Colitis Comments: Thank you for allowing us to care for you today [facility]. Today in the emergency department your evaluated for any possible life- threatening medical emergency. The CT scan did show colitis, and inflammation of the large intestine. The remainder of your test in the emergency department are all very reassuring. Please drink plenty fluids and get plenty of rest. Please use the medication for pain and nausea provided here in the emergency department as needed until you have an opportunity to follow-up with your primary care doctor. I want you to contact your primary care doctor first and tomorrow. If it anytime you have new or worsening symptoms please not hesitate to return. Forms: PCP List
[2023-06-17 20:11] LABS: BILIRUBIN,URINE NEGATIVE (NEGATIVE); GLUCOSE, URINE (UA) NEGATIVE (NEGATIVE); KETONES,URINE (UA) NEGATIVE (NEGATIVE); LEUKOCYTE ESTERASE, URINE NEGATIVE (NEGATIVE); NITRITE,URINE NEGATIVE (NEGATIVE); OCCULT BLOOD,URINE NEGATIVE (NEGATIVE); PH,URINE 5.5 PH (5.0-7.5); PROTEIN,URINE NEGATIVE (NEGATIVE); UROBILINOGEN,URINE 0.2 (NORMAL) E.U./dL (NORMAL)
[2023-06-17 20:12] LABS: CLARITY,URINE CLEAR (CLEAR)
[2023-06-17 20:22] LABS: BASOPHILS % (AUTO) 0.5 %; EOSINOPHILS # (AUTO) 0.1 10^3/uL (0.0-0.7); EOSINOPHILS % (AUTO) 0.8 %; HCT - HEMATOCRIT 42.3 % (42.0-52.0); HGB - HEMOGLOBIN 14.4 g/dL (14.0-18.0); LYMPHOCYTES # (AUTO) 2.2 10^3/uL (1.5-3.5); LYMPHOCYTES % (AUTO) 28.1 %; MEAN CORPUSCULAR HEMOGLOBIN 29.3 pg (27.0-31.0); MEAN PLATELET VOLUME 11.3 fL (7.4-11.4); MONOCYTES # (AUTO) 0.6 10^3/uL (0.0-1.0); MONOCYTES % (AUTO) 7.3 %; NEUTROPHILS # (AUTO) 4.8 10^3/uL (1.5-6.6); NEUTROPHILS % (AUTO) 63.2 %; PLT - PLATELET COUNT 222 10^3/uL (130-450); RED BLOOD COUNT 4.92 10^6/uL (4.70-6.10); RED CELL DISTRIBUTION WIDTH 12.8 % (12.0-15.0); WHITE BLOOD COUNT 7.7 x10^3/uL (4.8-10.8)
[2023-06-17 20:38] LABS: ALBUMIN 4.6 g/dL (3.2-5.5); ALBUMIN/GLOBULIN RATIO 1.9 (1.0-2.2); BILIRUBIN,TOTAL 0.6 mg/dL (0.2-1.0); CALCIUM 9.7 mg/dL (8.5-10.3); POTASSIUM 3.3 mmol/L (3.5-4.5)
--- NOTE | 2023-06-17 23:09 | CT Report ---
PROCEDURE: ABDOMEN/PELVIS W INDICATIONS: LLQ abd pain CONTRAST: 100 ML OMNI 300 TECHNIQUE: After the administration of intravenous contrast, 5 mm thick sections acquired from the diaphragms to the symphysis. 5 mm thick coronal and sagittal reformats were acquired. For radiation dose reducti on, the following was used: automated exposure control, adjustment of mA and/or kV according to teodora ent size. COMPARISON: CT abdomen pelvis 01/13/2022 FINDINGS: Image quality: Excellent. Lung bases: Unremarkable. Heart: Heart is normal in size. ABDOMEN: Liver:There is hypoattenuation of the liver compatible with fatty infiltration. Gallbladder:Surgically absent. Biliary ducts: No biliary ductal dilatation. Pancreas: Unremarkable. Spleen: Normal in size. A small hypodense focus in the spleen likely represents a cyst. Adrenal Glands: No adrenal nodules. Kidneys and Ureters: No hydronephrosis. Stomach and Bowel: Stomach and small bowel loops are normal in caliber and wall thickness. No eviden ce of appendicitis. There is mild segmental wall thickening of the descending and sigmoid colon likel y due to nondistention. Peritoneum: No abnormal intraperitoneal fluid. No free air. Ventral Wall: No hernia. Abdominal Nodes: No retroperitoneal or mesenteric adenopathy by size criteria. Vessels: Aorta and inferior vena cava are normal in size. PELVIS: Pelvic Organs: Unremarkable. Bladder: Unremarkable. Pelvic Nodes: No enlarged lymph nodes. Miscellaneous: No inguinal hernias. There is subcutaneous fat stranding within the bilateral gluteal regions. Bones: Visualized osseous structures demonstrate no suspicious lesions. IMPRESSION: 1. Mild segmental wall thickening in the descending and sigmoid colon may reflect nondistention but a mild colitis is not excluded. 2. Nonspecific subcutaneous fat stranding in the gluteal regions bilaterally. Recommend correlation w ith clinical exam and history. Reviewed by: Johnny Ashley MD on 06/17/2023 11:08 PM PDT Approved by: Johnny Ashley MD on 06/17/2023 11:08 PM PDT Station ID: [id number]
[2023-06-17] MEDS ORDERED: HYDROcod/ACET 5/325 Prepack 4 PO STA (23:27)
[2023-06-17] MEDS ORDERED: ONDANSETRON ODT 4 MG Prepack 2 TL PRN (23:27)
[2023-06-18 00:04] VITALS: BP 145/98; O2SAT 99
[2023-06-18] MEDS ORDERED: iohexoL-300 100 ML VIAL IVP ONE (01:56)
== END 2023-06-17 23:59 | disposition home or self-care (01) ==
LOC: ED 19:40
DX: K52.9 Noninfective gastroenteritis and colitis, unspecified (principal)
CPT/HCPCS: 36415; 74177; 80053; 81003; 83690; 85025; 96374; 99283; 99284; J1170; 81001; 87086

== ENCOUNTER 2024-04-20 17:19 | Emergency (ER) | payer OTHER ==
--- NOTE | 2024-04-20 20:37 | ED Physician Documentation ---
History of Present Illness - Stated complaint Stated Complaint: LOWER BACK PX,ITCHING - Chief complaint Chief Complaint: Back Pain - History obtained from History obtained from: Patient - Additonal information Additional information: The patient comes to the emergency department chief complaint of 2 weeks of runny eyes, runny nose, and itching burning skin. He denies any swelling in his throat or difficulty breathing. He states that the only thing that is new is that they got a Pomeranian puppy in February and the symptoms started about a month later. The patient's partner states that the patient is having "fevers" at night, that they have not measured any temperatures. Patient also complains of a flareup of his chronic low back pain. He is really not sure what caused it and wonders if his kidneys are working okay. He has been urinating normally. No blood or burning. He had an MRI of his spine a few months ago which showed scoliosis but otherwise was unremarkable according to the patient. He denies any other complaints at this time. PD PAST MEDICAL HISTORY - Past Medical History Past Medical History: Yes Cardiovascular: Hypertension - Past Surgical History Past Surgical History: No - Present Medications Home Medications: Ambulatory Orders Medication Instructions Recorded Confirmed Losartan Potassium [Cozaar] 100 mg PO DAILY 01/13/22 04/20/24 clonazePAM [Clonazepam] 1 mg PO DAILY PRN 01/13/22 04/20/24 Ibuprofen [Motrin] 800 mg PO Q8HR PRN 04/20/24 04/20/24 lamoTRIgine [LaMICtal] 50 mg PO DAILY 04/20/24 04/20/24 predniSONE [Deltasone] 10 mg PO [id number] #42 tab 04/20/24 traZODone [Desyrel] 50 mg PO QPM 04/20/24 04/20/24 - Allergies Allergies/Adverse Reactions: Allergies Allergy/AdvReac Type Severity Reaction Status Date / Time No Known Drug Allergies Allergy Verified 04/20/24 17:37 - Social History Does the pt smoke?: No Smoking Status: Never smoker Does the pt drink ETOH?: Yes Does the pt have substance abuse?: No - Immunizations Immunizations are current?: No - POLST Patient has POLST: No PD ED PE NORMAL - Vitals Vital signs reviewed: Yes - General General: Alert and oriented X 3, No acute distress, Well developed/nourished - HEENT HEENT: Atraumatic, PERRL, EOMI, Moist mucous membranes - Neck Neck: Supple, no meningeal sign, No bony TTP - Cardiac Cardiac: RRR, No murmur - Respiratory Respiratory: No respiratory distress, Clear bilaterally - Abdomen Abdomen: Soft, Non tender, Non distended - Back Back: No CVA TTP, No spinal TTP, Other (Mild tenderness palpation over bilateral lumbar paraspinal musculature and bilateral SI joints.) - Derm Derm: Normal color, Warm and dry, No rash - Extremities Extremities: No deformity - Neuro Neuro: Alert and oriented X 3, No motor deficit, No sensory deficit - Psych Psych: Normal mood, Normal affect Results - Vitals Vitals: Vital Signs - 24 hr 04/20/24 04/20/24 17:37 21:39 Temperature 36.8 C 36.8 C Heart Rate 82 83 Respiratory 16 16 Rate Blood Pressure 157/96 H 121/80 O2 Saturation 98 97 Oxygen O2 Source Room air - Labs Labs: Laboratory Tests 04/20/24 04/20/24 04/20/24 20:57 21:01 21:25 POC Whole Bld Glucose 98 Urine Color YELLOW Urine Clarity CLEAR Urine pH 6.0 Ur Specific [place] >=1.030 H Urine Protein NEGATIVE Urine Glucose (UA) NEGATIVE Urine Ketones NEGATIVE Urine Occult Blood NEGATIVE Urine Nitrite NEGATIVE Urine Bilirubin NEGATIVE Urine Urobilinogen 0.2 (NORMAL) Ur Leukocyte Esterase NEGATIVE Ur Microscopic Review NOT INDICATED Urine Culture Comments NOT INDICATED Nasal Adenovirus (PCR) NOT DETECTED Nasal B. parapertussis DNA (PCR) NOT DETECTED Nasal Coronavir 229E PCR NOT DETECTED Nasal Coronavir HKU1 PCR NOT DETECTED Nasal Coronavir NL63 PCR NOT DETECTED Nasal Coronavir OC43 PCR NOT DETECTED Nasal Enterovir/Rhinovir PCR NOT DETECTED Nasal Influenza B PCR NOT DETECTED Nasal Influenza A PCR NOT DETECTED Nasal Parainfluen 1 PCR NOT DETECTED Nasal Parainfluen 2 PCR NOT DETECTED Nasal Parainfluen 3 PCR NOT DETECTED Nasal Parainfluen 4 PCR NOT DETECTED Nasal RSV (PCR) NOT DETECTED Nasal B.pertussis DNA PCR NOT DETECTED Nasal C.pneumoniae (PCR) NOT DETECTED [place] Human Metapneumo PCR NOT DETECTED Nasal M.pneumoniae (PCR) NOT DETECTED Nasal SARS-CoV-2 (PCR) NOT DETECTED PD Medical Decision Making - ED course Complexity details: reviewed results, re-evaluated patient, considered differential, d/w patient ED course: Patient was worked up with noncontrast CT of the abdomen and pelvis, urinalysis, respiratory PCR panel. He was treated symptomatically with Toradol and Decadron. CT showed no acute findings and urinalysis was unremarkable. Respira tory PCR panel was also negative. The patient was feeling better after medication was stable for discharge home. We have discussed the usual indications for follow-up and return. Departure - Departure Disposition: Home, Self Care Clinical Impression: Environmental and seasonal allergies Low back pain Qualifiers: Chronicity: chronic Back pain laterality: bilateral Sciatica presence: with sciatica Sciatica laterality: bilateral sciatica Qualified Code(s): M54.42 - Lumbago with sciatica, left side Condition: Stable Instructions: ED Neck Back Pain General, ED Allergy Seasonal Prescriptions: predniSONE [Deltasone] 10 mg PO [id number] #42 tab Comments: All of your tests look good. Your blood sugar is 98 which is normal. Your urinalysis is negative. Your viral panel is also negative. Your CT scan overall looks good other than a little degeneration in your low spine which is probably the cause of your chronic back pain. There is no evidence of a kidney infection or any kidney stones. You also do not have diverticulitis. You have been treated for your symptoms here in the emergency department today. A prescription for steroid taper has been electronically transmitted to the [facility] pharmacy in [place]. You should get this filled and take it every day as directed. Please continue to follow with your primary doctor with regard to your ongoing symptoms. Discharge Date/Time: 04/20/24 22:19
[2024-04-20] MEDS: KETOROLAC 60 MG/2 ML VIAL IM STA (20:51)
[2024-04-20] MEDS: DEXAMETHASONE 10 MG/ML VIAL IM STA (20:51)
[2024-04-20 21:06] LABS: BILIRUBIN,URINE NEGATIVE (NEGATIVE); GLUCOSE, URINE (UA) NEGATIVE (NEGATIVE); KETONES,URINE (UA) NEGATIVE (NEGATIVE); LEUKOCYTE ESTERASE, URINE NEGATIVE (NEGATIVE); NITRITE,URINE NEGATIVE (NEGATIVE); OCCULT BLOOD,URINE NEGATIVE (NEGATIVE); PROTEIN,URINE NEGATIVE (NEGATIVE); UROBILINOGEN,URINE 0.2 (NORMAL) E.U./dL (NORMAL)
[2024-04-20 21:07] LABS: CLARITY,URINE CLEAR (CLEAR)
[2024-04-20 21:46] VITALS: BP 121/80; O2SAT 97
[2024-04-20 21:58] LABS: B. PARAPERTUSSIS- RESP PCR PAN NOT DETECTED; B. PERTUSSIS- RESP PCR PANEL NOT DETECTED; C. PNEUMONIAE- RESP PCR PANEL NOT DETECTED; CORONAVIRUS 229E-RESP PCR NOT DETECTED; CORONAVIRUS HKU1-RESP PCR NOT DETECTED; CORONAVIRUS NL63-RESP PCR NOT DETECTED; CORONAVIRUS OC43-RESP PCR NOT DETECTED; HUMAN METAPNEUMOVIRUS NOT DETECTED; INFLUENZA A- RESP PCR PANEL NOT DETECTED; INFLUENZA B - RESP PCR PANEL NOT DETECTED; M. PNEUMONIAE- RESP PCR PANEL NOT DETECTED; PARAINFLUENZA VIRUS 1 NOT DETECTED; PARAINFLUENZA VIRUS 2 NOT DETECTED; PARAINFLUENZA VIRUS 3 NOT DETECTED; PARAINFLUENZA VIRUS 4 NOT DETECTED; RHINOVIRUS/ENTEROVIRUS NOT DETECTED; RSV- RESP PCR PANEL NOT DETECTED; SARS-CoV-2 -RESP PCR PANEL NOT DETECTED
--- NOTE | 2024-04-20 22:37 | CT Report ---
PROCEDURE: Abdomen/Pelvis WO INDICATIONS: bilateral flank pain TECHNIQUE: A CT scan of the abdomen and pelvis was performed without the use of intravenous contrast. Images we re recorded and evaluated at appropriate window settings. Reformats: coronal and sagittal. For radiat ion dose reduction, the following was used: automated exposure control, adjustment of mA and/or kV ac cording to patient size. COMPARISON: CT abdomen pelvis with contrast 06/17/2023. FINDINGS: Image quality: Diagnostic. Lower chest: Unremarkable. Liver: No contour-deforming mass. Gallbladder: Surgically absent Biliary tree: No intrahepatic or extrahepatic dilation, accounting for age. Spleen: No splenomegaly. Pancreas: No pancreatic ductal dilation. Adrenals: No adrenal nodule. Kidneys and ureters: No hydronephrosis. No contour-deforming mass. Stomach, bowel and peritoneum: No gastric or small bowel dilation. No abnormal wall thickening. No pa thologic free fluid. Status post appendectomy. Lymph nodes: No central or retroperitoneal adenopathy. Vessels: No infrarenal aortic aneurysm. Reproductive organs: Unremarkable. Bladder: Bladder wall thickness is normal, accounting for underdistention. No calcified bladder stone s. Pelvic lymph nodes: No adenopathy by size criteria. Bones: No aggressive osseous abnormality. Other: No significant ventral or inguinal hernia. Redemonstration of subcutaneous fat stranding in th e bilateral gluteal regions. IMPRESSION: Compared to prior CT 06/17/2023, similar subcutaneous fat stranding and nodularity in the gluteal regio ns bilaterally. Findings are of uncertain etiology. Recommend clinical correlation. Otherwise no acute process in the abdomen or pelvis. Reviewed by: Nataly Cedeño MD, PhD on 04/20/2024 10:35 PM PDT Approved by: Nataly Cedeño MD, PhD on 04/20/2024 10:35 PM PDT Station ID: [id number]
== END 2024-04-20 22:19 | disposition home or self-care (01) ==
LOC: ED 17:19
DX: J30.2 Other seasonal allergic rhinitis (principal); M54.42 Lumbago with sciatica, left side; M54.41 Lumbago with sciatica, right side; I10 Essential (primary) hypertension; Z79.899 Other long term (current) drug therapy
CPT/HCPCS: 81001; 81003; 87086; 87633; 96372; 99283; 99284